=== PATIENT | female | born 1970 | race Caucasian/White ===

== ENCOUNTER 2019-11-17 09:18 | Emergency (ER) | payer OTHER, MEDICARE ==
--- NOTE | 2019-11-17 09:47 | EDM.PDOC ---
ED HPI GENERAL MEDICAL PROBLEM - General Chief Complaint: Lower Extremity Injury/Pain Stated Complaint: HIP PAIN Time Seen by Provider: 11/17/19 09:23 - History of Present Illness INITIAL COMMENTS - FREE TEXT/NARRATIVE: History of present illness: Patient presents with left hip pain after stepping in a gopher hole 2 days ago . Denies chronic back pain and has had surgery and she is concerned that when she stepped in a hole she might have injured her back she denies any back pain she is not had any difficulty urinating no numbness in her groin movement makes it worse she states she is not able to bear weight on the left hip due to pain and has been using crutches to get around as any other injuries did not fall the pain is mostly in her left groin radiating around to the posterior aspect of the left pelvis. [] Review of systems: As per history of present illness and below otherwise all systems reviewed and negative. Past medical history: As per history of present illness and as reviewed below otherwise noncontributory. Surgical history: As per history of present illness and as reviewed below otherwise noncontributory. Social history: No reported history of drug or alcohol abuse. Family history: As per history of present illness and as reviewed below otherwise noncontributory. Physical exam: HEENT: Atraumatic, normocephalic, pupils reactive, negative for conjunctival pallor or scleral icterus, mucous membranes moist, throat clear, neck supple, nontender, trachea midline. Lungs: Clear to auscultation, breath sounds equal bilaterally, chest nontender. Heart: S1S2, regular, negative for clicks, rubs, or JVD. Abdomen: Soft, nondistended, nontender. Negative for masses or hepatosplenomegaly. Negative for costovertebral tenderness. Pelvis: Stable nontender. Genitourinary: Deferred. Rectal: Deferred. Extremities: Atraumatic, negative for cords or calf pain. Neurovascular unremarkable. Pain with internal and external rotation of the femur there is pain over the groin she has good distal pulse motor and sensation Neuro: Awake, alert, oriented. Cranial nerves II through XII unremarkable. Cerebellum unremarkable. Motor and sensory unremarkable throughout. Exam nonfocal. Saddle anesthesia great toe strength 5 out of 5 Diagnostics: [] Therapeutics: [] Impression: [] Plan: Patient is concerned she injured her back and wants x-rays of the back I will obtain a lumbar spine and a pelvis and left hip to rule out hip fracture she is declining medication for pain at this time she will then be reassessed after films are obtained [] Definitive disposition and diagnosis as appropriate pending reevaluation and review of above. Left Hip Pain Score (Numeric/FACES): 8 - Related Data Allergies Allergy/AdvReac Type Severity Reaction Status Date / Time doxycycline Allergy Seizure Verified 11/17/19 09:31 erythromycin lactobionate Allergy Nausea and Verified 11/17/19 09:31 [From Erythrocin] Vomiting Home Meds: Home Meds raNITIdine HCL [Zantac 75] 75 mg PO ASDIRECTED PRN MDD 75 10/22/18 [History] Past Medical History HEENT History: Reports: None Cardiovascular History: Reports: Hypertension Respiratory History: Reports: Sleep Apnea, Other (See Below) Other Respiratory History: C-pap at home for sleep Gastrointestinal History: Reports: GERD Genitourinary History: 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 Calculus 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: Musculoskeletal History: Reports: Back Pain, Chronic Neurological History: Reports: Seizure Psychiatric History: Reports: None Endocrine/Metabolic History: Reports: None Hematologic History: Reports: None Immunologic History: Reports: None Oncologic (Cancer) History: Reports: None Dermatologic History: Reports: Other (See Below) Other Dermatologic History: rosacea - Infectious Disease History Infectious Disease History: Reports: Chicken Pox, Measles - Past Surgical History Head Surgeries/Procedures: Reports: None HEENT Surgical History: Reports: Tonsillectomy Cardiovascular Surgical History: Reports: None GI Surgical History: Reports: Appendectomy, Cholecystectomy Female Surgical History: Reports: Hysterectomy Endocrine Surgical History: Reports: None Neurological Surgical History: Reports: Spinal Fusion Musculoskeletal Surgical History: Reports: Other (See Below) Other Musculoskeletal Surgeries/Procedures:: back pain and back surgery x3 Last January 2017 Dermatological Surgical History: Reports: None Social & Family History - Family History Family Medical History: Noncontributory Cardiac: Reports: [place] - Tobacco Use Smoking Status *Q: Never Smoker - Caffeine Use Caffeine Use: Reports: Coffee Caffeine Use Comment: 2 cups coffee per day - Recreational Drug Use Recreational Drug Use: No Review of Systems - Review of Systems Review Of Systems: See Below ED EXAM, GENERAL - Physical Exam Exam: See Below Course - Vital Signs Last Recorded V/S: Last Vital Signs Temp 36.4 C 11/17/19 09:32 Pulse 102 H 11/17/19 09:32 Resp 16 11/17/19 09:32 BP 150/103 H 11/17/19 09:32 Pulse Ox 95 11/17/19 09:32 - Orders/Labs/Meds Orders: Active Orders 24 hr Category Date Time Status Hip Min 1V w Pelvis Lt [CR] Stat Exams 11/17/19 09:43 Ordered Lumbar Spine 2 or 3V [CR] Stat Exams 11/17/19 09:44 Ordered - Radiology Interpretation Free Text/Narrative:: A 4 view pelvis and left hip was read and interpreted by me no acute fractures or dislocations there are postoperative lumbar spine fusion changes present. A 3 view lumbar spine was read interpreted by me postop lumbar spine fusion at the level of L5-S1 is present appears stable no acute fractures or subluxations are appreciated read and interpreted by me. Departure - Departure Time of Disposition: 10:15 Disposition: Home, Self-Care 01 Condition: Good Clinical Impression: Sprain of hip - Discharge Information *PRESCRIPTION DRUG MONITORING PROGRAM REVIEWED*: Not Applicable *COPY OF PRESCRIPTION DRUG MONITORING REPORT IN PATIENT BLAIR: Not Applicable Instructions: Hip Pain Referrals: [facility] [Primary Care Provider] - Forms: ED Department Discharge Additional Instructions: The following information is given to patients seen in the emergency department who are being discharged to home. This information is to outline your options for follow-up care. We provide all patients seen in our emergency department with a follow-up referral. The need for follow-up, as well as the timing and circumstances, are variable depending upon the specifics of your emergency department visit. If you don't have a primary care physician on staff, we will provide you with a referral. We always advise you to contact your personal physician following an emergency department visit to inform them of the circumstance of the visit and for follow-up with them and/or the need for any referrals to a consulting specialist. The emergency department will also refer you to a specialist when appropriate. This referral assures that you have the opportunity for follow-up care with a specialist. All of these measure are taken in an effort to provide you with optimal care, which includes your follow-up. Under all circumstances we always encourage you to contact your private physician who remains a resource for coordinating your care. When calling for follow-up care, please make the office aware that this follow-up is from your recent emergency room visit. If for any reason you are refused follow-up, please contact the [facility] Emergency Department at and asked to speak to the emergency department charge nurse. Sepsis Event Note - Evaluation Sepsis Screening Result: No Definite Risk - Focused Exam Vital Signs: Vital Signs Temp Pulse Resp BP Pulse Ox 11/17/19 09:32 36.4 C 102 H 16 150/103 H 95 Date Exam was Performed: 11/17/19 Time Exam was Performed: 10:14 - My Orders Last 24 Hours: My Active Orders 11/17/19 09:43 Hip Min 1V w Pelvis Lt [CR] Stat 11/17/19 09:44 Lumbar Spine 2 or 3V [CR] Stat - Assessment/Plan Last 24 Hours: My Active Orders 11/17/19 09:43 Hip Min 1V w Pelvis Lt [CR] Stat 11/17/19 09:44 Lumbar Spine 2 or 3V [CR] Stat
[2019-11-17 10:37] VITALS: BP 153/101; PULSE 84
--- NOTE | 2019-11-17 10:38 | CR ---
Lumbar spine: AP, lateral and coned-down lateral views centered to the lumbosacral junction were obtained. Comparison: No previous lumbar spine imaging. Previous surgery at L5-S1 with transpedicle screws and intervertebral disc fixation device. Other disc spaces are maintained. Vertebral body heights are maintained. Minimal scattered endplate osteophytes are seen. Surgical clips are seen within the upper right abdomen from prior cholecystectomy. Pedicles are intact. Visualized transverse and spinous processes are intact. No subluxation or fracture is appreciated. Impression: 1. Previous surgery. 2. Minimal scattered endplate osteophytes. 3. Nothing acute is appreciated. Diagnostic code #2 This report was dictated in MDT
--- NOTE | 2019-11-17 10:38 | CR ---
Pelvis and left hip: AP view of the pelvis was obtained as well as AP and frog-leg lateral views left hip. Comparison: No prior pelvis or left hip study is available. Previous lumbar spine surgery is noted. Joint spaces within both hips are preserved. No acute fracture or other bony abnormality is identified. Impression: 1. Previous lumbar spine surgery. 2. Nothing acute is identified on AP pelvis or on 2 view left hip exam. Diagnostic code #2 This report was dictated in MDT
== END 2019-11-17 10:31 | disposition home or self-care (01) ==
LOC: MW.ED 09:18
DX: S73.102A Unspecified sprain of left hip, initial encounter (principal); I10 Essential (primary) hypertension; Z88.1 Allergy status to other antibiotic agents; X50.9XXA Other and unspecified overexertion or strenuous movements or postures, initial encounter
CPT/HCPCS: 72100; 72100-26; 73501-26-LT; 73501-LT; 99283; 99283-25

== ENCOUNTER 2020-11-20 22:30 | Emergency (ER) | payer OTHER ==
[2020-11-20] MEDS ORDERED: Sodium Chloride 0.9% 10 ML Syringe FLUSH PRN (22:54)
[2020-11-20] MEDS ORDERED: Ondansetron 4 MG/2 ML SDV IVPUSH ONE (22:54)
[2020-11-20] MEDS ORDERED: Sodium Chloride 0.9% 2.5 ML Syringe FLUSH PRN (22:54)
[2020-11-20] MEDS ORDERED: Lactated Ringers 1,000 ML IV ONE (22:55)
--- NOTE | 2020-11-20 22:57 | EDM.PDOC ---
ED HPI GENERAL MEDICAL PROBLEM - General Chief Complaint: Gastrointestinal Problem Stated Complaint: DIZZINESS, SLIP AND FALL Time Seen by Provider: 11/20/20 22:35 - History of Present Illness INITIAL COMMENTS - FREE TEXT/NARRATIVE: History of present illness: [] This patient has chronic back pain for a year and a half. A year ago she started a medical marijuana both smoked and edible. In July of this year she slowed down and smoked an edible and began to use it in her cooking. Since then she has had nausea and vomiting frequently. She is vomiting so much the last few days and she thinks she is dehydrated. She feels weak and dizzy. Patient has abdominal pain as well. The patient says her back pain is not as well controlled either since she started cooking with the THC instead of taking the edibles and smoke. Review of systems: As per history of present illness and below otherwise all systems reviewed and negative. Past medical history: As per history of present illness and as reviewed below otherwise noncontributory. Surgical history: As per history of present illness and as reviewed below otherwise noncontributory. Social history: No reported history of drug or alcohol abuse. Family history: As per history of present illness and as reviewed below otherwise noncontributory. Physical exam: Constitutional - well developed, well-nourished and in no acute distress HEENT - normocephalic, no evidence of trauma - external nose and mouth normal - no mass in neck and no JVD - mucosae moist EYES - full EOM, PERRL, no icterus - no evidence of inflammation, injection, or drainage Respiratory - no respiratory distress, equal bilateral expansion, lungs clear to auscultation and no abnormal lung sounds Cardiovascular - Regular Rhythm with S1 and S2 appreciated and no murmur, gallop or rub. GI - abdomen soft without distension or organomegaly - normal bowel sounds - no guard or rebound Musculoskeletal no gross deformity of long bones or joints - no tenderness, swelling or edema Neurologic - Alert and oriented times four - CN II-XII grossly intact - motor sensory and coordination symmetrically normal Psychiatric - appropriate mood and affect with normal thought content Hematologic - No petechiae or purpura - mucosa appropriate color and sclera not pale - normal nail bed color and refill Integument - no rash or evidence of trauma - normal turgor Diagnostics: [] Therapeutics: [] Impression: [] Plan: [] Definitive disposition and diagnosis as appropriate pending reevaluation and review of above. epigastric Pain Score (Numeric/FACES): 8 - Related Data Allergies Allergy/AdvReac Type Severity Reaction Status Date / Time doxycycline Allergy Seizure Verified 11/20/20 22:49 erythromycin lactobionate Allergy Nausea and Verified 11/20/20 22:49 [From Erythrocin] Vomiting Home Meds: Home Meds Medical Marijuana 11/20/20 [History] Ondansetron [Zofran ODT] 4 mg PO Q6H PRN #10 tab.dis 11/21/20 [Rx] Past Medical History HEENT History: Reports: None Cardiovascular History: Reports: Hypertension Respiratory History: Reports: Sleep Apnea, Other (See Below) Other Respiratory History: C-pap at home for sleep Gastrointestinal History: Reports: GERD Genitourinary History: 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 Calculus 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: Musculoskeletal History: Reports: Back Pain, Chronic Neurological History: Reports: Seizure Psychiatric History: Reports: None Endocrine/Metabolic History: Reports: None Hematologic History: Reports: None Immunologic History: Reports: None Oncologic (Cancer) History: Reports: None Dermatologic History: Reports: Other (See Below) Other Dermatologic History: rosacea - Infectious Disease History Infectious Disease History: Reports: Chicken Pox, Measles - Past Surgical History Head Surgeries/Procedures: Reports: None HEENT Surgical History: Reports: Tonsillectomy Cardiovascular Surgical History: Reports: None GI Surgical History: Reports: Appendectomy, Cholecystectomy Female Surgical History: Reports: Hysterectomy Endocrine Surgical History: Reports: None Neurological Surgical History: Reports: Spinal Fusion Musculoskeletal Surgical History: Reports: Other (See Below) Other Musculoskeletal Surgeries/Procedures:: back pain and back surgery x3 Last January 2017 Dermatological Surgical History: Reports: None Social & Family History - Family History Family Medical History: No Pertinent Family History Cardiac: Reports: [place] - Caffeine Use Caffeine Use: Reports: Coffee Caffeine Use Comment: 2 cups coffee per day ED ROS GENERAL - Review of Systems Review Of Systems: Comprehensive ROS is negative, except as noted in HPI. ED EXAM, GENERAL - Physical Exam Exam: See Below Free Text/Narrative:: My physical exam is in the HPI #1 Interpretation EKG Interpretation Comments: An EKG done by nursing protocol at 2244 hrs. shows a sinus rhythm with a heart rate of 67 and a MI interval 141. The QT duration is 432 and the axis is 42. The QRS ST and T are normal. Impression normal Course - Vital Signs Text/Narrative:: 00 20 hours patient feels better. Stomach still hurts. Plan Protonix. Discharge. Last Recorded V/S: Last Vital Signs Temp 36.9 C 11/20/20 22:35 Pulse 84 11/20/20 22:35 Resp 18 11/20/20 22:35 BP 155/87 H 11/20/20 22:35 Pulse Ox 97 11/20/20 22:35 - Orders/Labs/Meds Orders: Active Orders 24 hr Category Date Time Status Sodium Chloride 0.9% [Saline Flush] Med 11/20/20 22:54 Active 10 ml FLUSH ASDIRECTED PRN Sodium Chloride 0.9% [Saline Flush] Med 11/20/20 22:54 Active 2.5 ml FLUSH ASDIRECTED PRN Saline Lock Insert [OM.PC] Stat Oth 11/20/20 22:54 Ordered Medication Orders Sodium Chloride (Sodium Chloride 0.9% 10 Ml Syringe) 10 ml FLUSH ASDIRECTED PRN PRN Reason: Keep Vein Open Last Admin: 11/20/20 23:34 Dose: 10 ml Documented by: JUAN Sodium Chloride (Sodium Chloride 0.9% 2.5 Ml Syringe) 2.5 ml FLUSH ASDIRECTED PRN PRN Reason: Keep Vein Open Last Admin: 11/20/20 23:34 Dose: 2.5 ml Documented by: JUAN Labs: Laboratory Tests 11/20/20 11/20/20 11/20/20 Range/Units 23:32 23:32 23:32 WBC 6.96 (4.0-11.0) K/uL RBC 4.64 (4.30-5.90) M/uL Hgb 14.5 (12.0-16.0) g/dL Hct 41.9 (36.0-46.0) % MCV 90.3 (80.0-98.0) fL MCH 31.3 (27.0-32.0) pg MCHC 34.6 (31.0-37.0) g/dL RDW Std Deviation 45.4 (28.0-62.0) fl RDW Coeff of Santi 14 (11.0-15.0) % Plt Count 298 (150-400) K/uL MPV 9.70 (7.40-12.00) fL Neut % (Auto) 56.5 (48.0-80.0) % Lymph % (Auto) 32.8 (16.0-40.0) % Mcdonough % (Auto) 9.5 (0.0-15.0) % Eos % (Auto) 0.9 (0.0-7.0) % Baso % (Auto) 0.3 (0.0-1.5) % Neut # (Auto) 3.9 (1.4-5.7) K/uL Lymph # (Auto) 2.3 (0.6-2.4) K/uL Mcdonough # (Auto) 0.7 (0.0-0.8) K/uL Eos # (Auto) 0.1 (0.0-0.7) K/uL Baso # (Auto) 0.0 (0.0-0.1) K/uL Nucleated RBC % 0.0 /100WBC Nucleated RBCs # 0 K/uL Sodium 141 (136-145) mmol/L Potassium 3.2 L (3.5-5.1) mmol/L Chloride 103 (98-107) mmol/L Carbon Dioxide 24.3 (21.0-32.0) mmol/L BUN 7 (7.0-18.0) mg/dL Creatinine 0.8 (0.6-1.0) mg/dL Est Cr Clr Drug Dosing 61.10 mL/min Estimated GFR (MDRD) > 60.0 ml/min Glucose 97 (74-106) mg/dL Calcium 8.9 (8.5-10.1) mg/dL Total Bilirubin 0.4 (0.2-1.0) mg/dL AST 28 (15-37) IU/L ALT 60 (14-63) IU/L Alkaline Phosphatase 64 (46-116) U/L Total Protein 7.7 (6.4-8.2) g/dL Albumin 4.0 (3.4-5.0) g/dL Globulin 3.7 (2.6-4.0) g/dL Albumin/Globulin Ratio 1.1 (0.9-1.6) Lipase 80 (73-393) U/L HCG, Qual NEGATIVE (NEG) Meds: Medications Generic Name Dose Route Start Last Admin Trade Name Freq PRN Reason Stop Dose Admin Sodium Chloride 10 ml 11/20/20 22:54 11/20/20 23:34 Sodium Chloride 0.9% 10 Ml Syringe FLUSH 10 ml ASDIRECTED PRN Administration Keep Vein Open Sodium Chloride 2.5 ml 11/20/20 22:54 11/20/20 23:34 Sodium Chloride 0.9% 2.5 Ml Syringe FLUSH 2.5 ml ASDIRECTED PRN Administration Keep Vein Open Discontinued Medications Generic Name Dose Route Start Last Admin Trade Name Freq PRN Reason Stop Dose Admin Lactated Ringer's 1,000 mls @ 1,000 mls/hr 11/20/20 22:55 11/20/20 23:25 Ringers, Lactated IV 11/20/20 23:54 1,000 mls/hr .BOLUS ONE Administration Pantoprazole Sodium 40 mg/ 10 mls @ 300 mls/hr 11/21/20 00:19 Sodium Chloride IV 11/21/20 00:20 NOW ONE Ondansetron HCl 4 mg 11/20/20 22:54 11/20/20 23:25 Ondansetron 4 Mg/2 Ml Sdv IVPUSH 11/20/20 22:55 4 mg ONETIME ONE Administration Departure - Departure Time of Disposition: 00:25 Disposition: Home, Self-Care 01 Condition: Good Clinical Impression: Gastritis - Discharge Information Prescriptions: Ondansetron [Zofran ODT] 4 mg PO Q6H PRN #10 tab.dis PRN Reason: Nausea/Vomiting Instructions: Gastritis, Adult, [id number] Referrals: PCP,None [Primary Care Provider] - Forms: ED Department Discharge Additional Instructions: Go back to the plan of care that you were under before you got into trouble in July. Take Pepcid and/or Prilosec and/or both. [facility] - [facility] [address] [place] [id number] [facility] [address] [place] [id number] The following information is given to patients seen in the emergency department who are being discharged to home. This information is to outline your options for follow-up care. We provide all patients seen in our emergency department with a follow-up referral. The need for follow-up, as well as the timing and circumstances, are variable depending upon the specifics of your emergency department visit. If you don't have a primary care physician on staff, we will provide you with a referral. We always advise you to contact your personal physician following an emergency department visit to inform them of the circumstance of the visit and for follow-up with them and/or the need for any referrals to a consulting specialist. The emergency department will also refer you to a specialist when appropriate. This referral assures that you have the opportunity for follow-up care with a specialist. All of these measure are taken in an effort to provide you with optimal care, which includes your follow-up. Under all circumstances we always encourage you to contact your private physician who remains a resource for coordinating your care. When calling for follow-up care, please make the office aware that this follow-up is from your recent emergency room visit. If for any reason you are refused follow-up, please contact the [facility] Emergency Department at and asked to speak to the emergency department charge nurse. Sepsis Event Note (ED) - Evaluation Sepsis Screening Result: No Definite Risk - Focused Exam Vital Signs: Vital Signs Temp Pulse Resp BP Pulse Ox 11/20/20 22:35 36.9 C 84 18 155/87 H 97 - My Orders Last 24 Hours: My Active Orders 11/20/20 22:54 Sodium Chloride 0.9% [Saline Flush] 10 ml FLUSH ASDIRECTED PRN Sodium Chloride 0.9% [Saline Flush] 2.5 ml FLUSH ASDIRECTED PRN Saline Lock Insert [OM.PC] Stat - Assessment/Plan Last 24 Hours: My Active Orders 11/20/20 22:54 Sodium Chloride 0.9% [Saline Flush] 10 ml FLUSH ASDIRECTED PRN Sodium Chloride 0.9% [Saline Flush] 2.5 ml FLUSH ASDIRECTED PRN Saline Lock Insert [OM.PC] Stat
[2020-11-21 00:05] LABS: BLOOD UREA NITROGEN,BUN 7 mg/dL (7.0-18.0); CARBON DIOXIDE,CO2 24.3 mmol/L (21.0-32.0); CHLORIDE,CL 103 mmol/L (98-107); GLUCOSE RANDOM 97 mg/dL (74-106); POTASSIUM,K 3.2 mmol/L (3.5-5.1); SODIUM,NA 141 mmol/L (136-145)
[2020-11-21 00:06] LABS: LIPASE 80 U/L (73-393)
[2020-11-21] MEDS ORDERED: Pantoprazole 40 MG in Sodium Chloride 0.9% 10 ML IV ONE (00:19)
[2020-11-21 00:38] VITALS: BP 135/71; PULSE 82
== END 2020-11-21 00:52 | disposition home or self-care (01) ==
LOC: MW.ED 22:30
DX: K29.70 Gastritis, unspecified, without bleeding (principal); R42 Dizziness and giddiness; I10 Essential (primary) hypertension; Z88.1 Allergy status to other antibiotic agents
CPT/HCPCS: 36415; 80053; 83690; 84703; 85025; 93005; 96374; 96375; 99284; C9113; J2405; J7120

== ENCOUNTER 2020-12-09 09:42 | Emergency (ER) | payer OTHER ==
--- NOTE | 2020-12-09 10:26 | EDM.PDOC ---
ED HPI GENERAL MEDICAL PROBLEM - General Chief Complaint: General Stated Complaint: SINUS INFECTION Time Seen by Provider: 12/09/20 10:05 Source of Information: Reports: Patient History Limitations: Reports: No Limitations - History of Present Illness INITIAL COMMENTS - FREE TEXT/NARRATIVE: HISTORY AND PHYSICAL: History of present illness: Patient is a 50-year-old female who presents to the emergency room with complaints of sinus pressure, pain to the maxillofacial area, runny/stuffy nose since Friday. [facility], the hotline recommended she come to the emergency room for antibiotics. She was concerned she has a sinus infection and wanted treatment before she took a flight on Friday. Patient denies any fever, chills, headache, change in vision, syncope or near syncope. Denies any chest pain, back pain, shortness of breath or cough. Denies any abdominal pain, nausea, vomiting, diarrhea, constipation or dysuria. Has not noted any blood in urine or stool. Patient has been eating and drinking appropriately. Review of systems: As per history of present illness and below otherwise all systems reviewed and negative. Past medical history: As per history of present illness and as reviewed below otherwise noncontributory. Surgical history: As per history of present illness and as reviewed below otherwise non contributory. Social history: See social history for further information Family history: As per history of present illness and as reviewed below otherwise noncontributory. Physical exam: General: Well developed and well nourished 50 year old female. Alert and orientated x 3. Nontoxic in appearance and in no acute distress. Vital signs are stable and have been reviewed by me. Nursing notes were reviewed. HEENT: Atraumatic, normocephalic, pupils equal and reactive bilaterally, negative for conjunctival pallor or scleral icterus, mucous membranes moist, bilateral maxillofacial sinus tenderness with palpation, stuffy nose, TMs normal bilaterally, throat clear, neck supple, nontender, trachea midline. No drooling or trismus noted. No meningeal signs. No hot potato voice noted. Lungs: Clear to auscultation bilaterally. No wheezes, rales, or rhonchi. Normal work of breathing, no accessory muscles used. Heart: S1S2, regular rate and rhythm without overt murmur, gallops, or rubs. No JVD. No peripheral edema Abdomen: Soft, nondistended, nontender. Skin: Intact, warm, dry. No lesions or rashes noted. Hematologic: No petechiae or purpra. Mucosa appropriate color and normal nail bed color and refill. Extremities: Atraumatic, moves all extremities per self without difficulty or deficits, negative for cords or calf pain. Neurovascular unremarkable. Neuro: Awake, alert, oriented. Cranial nerves II through XII unremarkable. Cerebellum unremarkable. Motor and sensory unremarkable throughout. Exam nonfocal. Psychiatric: Mood and affect are appropriate. Normal thought process. Answering questions appropriately. Notes: *This patient was seen and evaluated during the 2019 SARS-CoV-2 novel coronavirus pandemic period. Community viral transmission is ongoing at time of this encounter and the emergency department is operating under pandemic response procedures. Patient is a 50-year-old female who presents to the emergency room with concern she has a sinus infection. She states she is flying on Friday and would like to initiate treatment before then. She has been using [id number] sinus and cold medication without much relief. She has no concerns for COVID-19. Her physical exam is unremarkable with the exception of EENT findings. I have talked with the patient about today's findings, in addition to providing specific details for plan of care. Reassessment at the time of disposition demonstrates that the patient is in no acute distress. The patient is stable for discharge, counseling was provided and we discussed in great detail signs and symptoms that would prompt them to return to the Emergency Department. Medication, follow up and supportive care measures were reviewed and discussed. Voices understanding and is agreeable to plan of care. Denies any further questions or concerns at this time. Diagnostics: None Therapeutics: None Prescription: Augmentin Impression: Sinusitis Plan: 1. You were evaluated today on an emergent basis. Please take an [id number] decongestant to help alleviate symptoms. 2. You can alternate Tylenol and ibuprofen as needed for pain and fever management. 3. We encourage you to follow up with your primary care provider and/or recommended specialist in the next few days for re-evaluation and further care/management. 4. If your symptoms should worsen, new symptoms develop or any of the signs and symptoms we discussed should arise please return to the emergency room or call 911 (if needed). Definitive disposition and diagnosis as appropriate pending reevaluation and review of above. - Related Data Allergies Allergy/AdvReac Type Severity Reaction Status Date / Time doxycycline Allergy Seizure Verified 12/09/20 10:33 erythromycin lactobionate Allergy Nausea and Verified 12/09/20 10:33 [From Erythrocin] Vomiting Home Meds: Home Meds Medical Marijuana 11/20/20 [History] Ondansetron [Zofran ODT] 4 mg PO Q6H PRN #10 tab.dis 11/21/20 [Rx] Amoxicillin/Clavulanate K [Augmentin 875-125 MG] 1 tab PO BID 10 Days #20 tablet 12/09/20 [Rx] Past Medical History HEENT History: Reports: None Cardiovascular History: Reports: Hypertension Respiratory History: Reports: Sleep Apnea, Other (See Below) Other Respiratory History: C-pap at home for sleep Gastrointestinal History: Reports: GERD Genitourinary History: 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 Calculus 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: Musculoskeletal History: Reports: Back Pain, Chronic Neurological History: Reports: Seizure Psychiatric History: Reports: None Endocrine/Metabolic History: Reports: None Hematologic History: Reports: None Immunologic History: Reports: None Oncologic (Cancer) History: Reports: None Dermatologic History: Reports: Other (See Below) Other Dermatologic History: rosacea - Infectious Disease History Infectious Disease History: Reports: Chicken Pox, Measles - Past Surgical History Head Surgeries/Procedures: Reports: None HEENT Surgical History: Reports: Tonsillectomy Cardiovascular Surgical History: Reports: None GI Surgical History: Reports: Appendectomy, Cholecystectomy Female Surgical History: Reports: Hysterectomy Endocrine Surgical History: Reports: None Neurological Surgical History: Reports: Spinal Fusion Musculoskeletal Surgical History: Reports: Other (See Below) Other Musculoskeletal Surgeries/Procedures:: back pain and back surgery x3 Last January 2017 Dermatological Surgical History: Reports: None Social & Family History - Family History Family Medical History: No Pertinent Family History Cardiac: Reports: AL - Caffeine Use Caffeine Use: Reports: Coffee Caffeine Use Comment: 2 cups coffee per day ED ROS GENERAL - Review of Systems Review Of Systems: Comprehensive ROS is negative, except as noted in HPI. ED EXAM, GENERAL - Physical Exam Exam: See Below (See dictation) Departure - Departure Time of Disposition: 10:32 Disposition: Home, Self-Care 01 Clinical Impression: Sinusitis Qualifiers: Sinusitis location: maxillary Chronicity: acute Recurrence: non-recurrent Qualified Code(s): J01.00 - Acute maxillary sinusitis, unspecified - Discharge Information Prescriptions: Amoxicillin/Clavulanate K [Augmentin 875-125 MG] 1 tab PO BID 10 Days #20 tablet Instructions: Sinusitis, Adult, [id number] Referrals: Ab Becker SURVEY COORDINATOR [Primary Care Provider] - Forms: ED Department Discharge Additional Instructions: The following information is given to patients seen in the emergency department who are being discharged to home. This information is to outline your options for follow-up care. We provide all patients seen in our emergency department with a follow-up referral. The need for follow-up, as well as the timing and circumstances, are variable depending upon the specifics of your emergency department visit. If you don't have a primary care physician on staff, we will provide you with a referral. We always advise you to contact your personal physician following an emergency department visit to inform them of the circumstance of the visit and for follow-up with them and/or the need for any referrals to a consulting specialist. The emergency department will also refer you to a specialist when appropriate. This referral assures that you have the opportunity for follow-up care with a specialist. All of these measure are taken in an effort to provide you with optimal care, which includes your follow-up. Under all circumstances we always encourage you to contact your private physician who remains a resource for coordinating your care. When calling for follow-up care, please make the office aware that this follow-up is from your recent emergency room visit. If for any reason you are refused follow-up, please contact the [facility] Emergency Department at and asked to speak to the emergency department charge nurse. [facility] [address] [place] [id number] [address] Thank you for choosing the [facility] emergency department in [facility] for your medical needs today. It was a pleasure caring for you. Today you were seen in the emergency department for sinusitis. 1. You were evaluated today on an emergent basis. Please take an [id number] decongestant to help alleviate symptoms. 2. You can alternate Tylenol and ibuprofen as needed for pain and fever management. 3. We encourage you to follow up with your primary care provider and/or recommended specialist in the next few days for re-evaluation and further care/management. 4. If your symptoms should worsen, new symptoms develop or any of the signs and symptoms we discussed should arise please return to the emergency room or call 911 (if needed).
[2020-12-09 10:55] VITALS: BP 128/87; PULSE 80
== END 2020-12-09 10:53 | disposition home or self-care (01) ==
LOC: MW.ED 09:42
DX: J01.00 Acute maxillary sinusitis, unspecified (principal); I10 Essential (primary) hypertension; Z88.1 Allergy status to other antibiotic agents
CPT/HCPCS: 99283

== ENCOUNTER 2021-06-25 00:37 | Observation (INO) | payer OTHER ==
[2021-06-25] MEDS ORDERED: Sodium Chloride 0.9% 2.5 ML Syringe FLUSH PRN (00:41)
[2021-06-25] MEDS ORDERED: Sodium Chloride 0.9% 10 ML Syringe FLUSH PRN (00:41)
--- NOTE | 2021-06-25 00:44 | EDM.PDOC ---
ED HPI GENERAL MEDICAL PROBLEM - General Chief Complaint: Chest Pain Stated Complaint: CHEST PAIN AND SHORTNESS OF BREATH Time Seen by Provider: 06/25/21 00:40 Source of Information: Reports: Patient History Limitations: Reports: No Limitations - History of Present Illness INITIAL COMMENTS - FREE TEXT/NARRATIVE: 51-year-old female with history of lupus and anxiety presents with chest pain. She had left-sided chest pain yesterday that lasted for an hour and then resolved. This evening around 11 PM while she was lying in bed she started having recurring chest pain and her left chest that radiates to her left shoulder, described as waxing and waning cramping sensation rated 7/10. Currently rated 3/10. She admits to shortness of breath and nausea. She denies sweats, palpitations, back pain, vomiting, cough, fever, chills. She has never had a stress test. ROS: A 10-point review of systems, other than pertinent positives and negatives as stated per HPI, is otherwise negative Past medical history: No additional pertinent history Past Surgical history: No additional pertinent history Social history: No additional pertinent history Family history: No additional pertinent history PHYSICAL EXAM General: AOx4, GCS = 15, No distress HEENT: dry mucous membrane Neck: supple, no meningismus, no Kernig or Brudzinski Cardiac: S1S2 RRR Respiratory: CTAB, no crackles or rales, no wheezing Abdomen: Soft, epigastric tenderness, no right upper quadrant tenderness. Negative Hollis sign. No rebound or guarding, nondistended, no pulsatile mass. Back: nontender Musculoskeletal: NVI distally, no deformity Neuro: No focal deficits, CN 2 - 12 WNL. 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 History: 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: Musculoskeletal History: Reports: Back Pain, Chronic Neurological History: Reports: Seizure Psychiatric History: Reports: None Endocrine/Metabolic History: Reports: None Hematologic History: Reports: None Immunologic History: Reports: None Oncologic (Cancer) History: Reports: None Dermatologic History: Reports: Other (See Below) Other Dermatologic History: rosacea - Infectious Disease History Infectious Disease History: Reports: Chicken Pox, Measles - Past Surgical History Head Surgeries/Procedures: Reports: None HEENT Surgical History: Reports: Tonsillectomy Cardiovascular Surgical History: Reports: None Respiratory Surgical History: Reports: None GI Surgical History: Reports: Appendectomy, Cholecystectomy Female Surgical History: Reports: Hysterectomy Endocrine Surgical History: Reports: None Neurological Surgical History: Reports: Spinal Fusion Musculoskeletal Surgical History: Reports: Other (See Below) Other Musculoskeletal Surgeries/Procedures:: back pain and back surgery x3 Last January 2017 Dermatological Surgical History: Reports: None Social & Family History - Family History Family Medical History: No Pertinent Family History Cardiac: Reports: ID - Caffeine Use Caffeine Use: Reports: None Caffeine Use Comment: 2 cups coffee per day ED ROS GENERAL - Review of Systems Review Of Systems: See Below ED EXAM, GENERAL - Physical Exam Exam: See Below (see dictation) #1 Interpretation EKG Interpretation Comments: Heart rate = 93 bpm, normal sinus rhythm, normal QRS interval, no STEMI. EKG and rhythm strip interpreted by me at 1237 Course - Vital Signs Last Recorded V/S: Last Vital Signs Temp 97.4 F 06/25/21 00:43 Pulse 92 06/25/21 02:15 Resp 17 06/25/21 02:15 BP 102/65 06/25/21 02:15 Pulse Ox 97 06/25/21 02:15 - Orders/Labs/Meds Orders: Active Orders 24 hr Category Date Time Status Cardiac Monitoring [RC] . DIRECTED Care 06/25/21 00:41 Active B-TYPE NATRIURETIC PEPTIDE,BNP [CHEM] Stat Lab 06/25/21 00:40 Received CORONAVIRUS COVID-19 KATARZYNA [MOLEC] Stat Lab 06/25/21 03:00 Ordered Nitroglycerin [Nitrostat] Med 06/25/21 01:38 Active 0.4 mg SL Q5M PRN Sodium Chloride 0.9% [Saline Flush] Med 06/25/21 00:41 Active 10 ml FLUSH ASDIRECTED PRN Sodium Chloride 0.9% [Saline Flush] Med 06/25/21 00:41 Active 2.5 ml FLUSH ASDIRECTED PRN Saline Lock Insert [OM.PC] Stat Oth 06/25/21 00:42 Ordered Medication Orders Nitroglycerin (Nitroglycerin 0.4 Mg Tab.Sl) 0.4 mg SL Q5M PRN PRN Reason: Chest Pain Last Admin: 06/25/21 02:10 Dose: 0.4 mg Documented by: SHANNAN Sodium Chloride (Sodium Chloride 0.9% 10 Ml Syringe) 10 ml FLUSH ASDIRECTED PRN PRN Reason: Keep Vein Open Last Admin: 06/25/21 00:50 Dose: 10 ml Documented by: LANCE Sodium Chloride (Sodium Chloride 0.9% 2.5 Ml Syringe) 2.5 ml FLUSH ASDIRECTED PRN PRN Reason: Keep Vein Open Last Admin: 06/25/21 00:50 Dose: 2.5 ml Documented by: LANCE Labs: Laboratory Tests 06/25/21 06/25/21 06/25/21 Range/Units 00:40 00:40 00:40 WBC 10.84 (4.0-11.0) K/uL RBC 4.90 (4.30-5.90) M/uL Hgb 15.0 (12.0-16.0) g/dL Hct 43.8 (36.0-46.0) % MCV 89.4 (80.0-98.0) fL MCH 30.6 (27.0-32.0) pg MCHC 34.2 (31.0-37.0) g/dL RDW Std Deviation 45.1 (28.0-62.0) fl RDW Coeff of Santi 14 (11.0-15.0) % Plt Count 340 (150-400) K/uL MPV 9.10 (7.40-12.00) fL Neut % (Auto) 45.1 L (48.0-80.0) % Lymph % (Auto) 44.1 H (16.0-40.0) % [place] % (Auto) 8.7 (0.0-15.0) % Eos % (Auto) 1.8 (0.0-7.0) % Baso % (Auto) 0.3 (0.0-1.5) % Neut # (Auto) 4.9 (1.4-5.7) K/uL Lymph # (Auto) 4.8 H (0.6-2.4) K/uL [place] # (Auto) 0.9 H (0.0-0.8) K/uL Eos # (Auto) 0.2 (0.0-0.7) K/uL Baso # (Auto) 0.0 (0.0-0.1) K/uL D-Dimer, Quantitative (0.0-0.50) mg/L FEU Sodium 140 (136-145) mmol/L Potassium 3.2 L (3.5-5.1) mmol/L Chloride 102 (98-107) mmol/L Carbon Dioxide 26.7 (21.0-32.0) mmol/L BUN 15 (7.0-18.0) mg/dL Creatinine 0.8 (0.6-1.0) mg/dL Est Cr Clr Drug Dosing 63.48 mL/min Estimated GFR (MDRD) > 60.0 ml/min Glucose 111 H (74-106) mg/dL Calcium 9.0 (8.5-10.1) mg/dL Total Bilirubin 0.2 (0.2-1.0) mg/dL AST 13 L (15-37) IU/L ALT 24 (14-63) IU/L Alkaline Phosphatase 66 (46-116) U/L Troponin I < 0.050 (0.000-0.056) ng/mL Total Protein 8.2 (6.4-8.2) g/dL Albumin 4.1 (3.4-5.0) g/dL Globulin 4.1 H (2.6-4.0) g/dL Albumin/Globulin Ratio 1.0 (0.9-1.6) Lipase 124 (73-393) U/L // Range/Units 00:40 WBC (4.0-11.0) K/uL RBC (4.30-5.90) M/uL Hgb (12.0-16.0) g/dL Hct (36.0-46.0) % MCV (80.0-98.0) fL MCH (27.0-32.0) pg MCHC (31.0-37.0) g/dL RDW Std Deviation (28.0-62.0) fl RDW Coeff of Santi (11.0-15.0) % Plt Count (150-400) K/uL MPV (7.40-12.00) fL Neut % (Auto) (48.0-80.0) % Lymph % (Auto) (16.0-40.0) % [place] % (Auto) (0.0-15.0) % Eos % (Auto) (0.0-7.0) % Baso % (Auto) (0.0-1.5) % Neut # (Auto) (1.4-5.7) K/uL Lymph # (Auto) (0.6-2.4) K/uL [place] # (Auto) (0.0-0.8) K/uL Eos # (Auto) (0.0-0.7) K/uL Baso # (Auto) (0.0-0.1) K/uL D-Dimer, Quantitative 0.43 (0.0-0.50) mg/L FEU Sodium (136-145) mmol/L Potassium (3.5-5.1) mmol/L Chloride (98-107) mmol/L Carbon Dioxide (21.0-32.0) mmol/L BUN (7.0-18.0) mg/dL Creatinine (0.6-1.0) mg/dL Est Cr Clr Drug Dosing mL/min Estimated GFR (MDRD) ml/min Glucose (74-106) mg/dL Calcium (8.5-10.1) mg/dL Total Bilirubin (0.2-1.0) mg/dL AST (15-37) IU/L ALT (14-63) IU/L Alkaline Phosphatase (46-116) U/L Troponin I (0.000-0.056) ng/mL Total Protein (6.4-8.2) g/dL Albumin (3.4-5.0) g/dL Globulin (2.6-4.0) g/dL Albumin/Globulin Ratio (0.9-1.6) Lipase (73-393) U/L Meds: Medications Generic Name Dose Route Start Last Admin Trade Name Freq PRN Reason Stop Dose Admin Nitroglycerin 0.4 mg 06/25/21 01:38 06/25/21 02:10 Nitroglycerin 0.4 Mg Tab.Sl SL 0.4 mg Q5M PRN Administration Chest Pain Sodium Chloride 10 ml 06/25/21 00:41 06/25/21 00:50 Sodium Chloride 0.9% 10 Ml Syringe FLUSH 10 ml ASDIRECTED PRN Administration Keep Vein Open Sodium Chloride 2.5 ml 06/25/21 00:41 06/25/21 00:50 Sodium Chloride 0.9% 2.5 Ml Syringe FLUSH 2.5 ml ASDIRECTED PRN Administration Keep Vein Open Discontinued Medications Generic Name Dose Route Start Last Admin Trade Name Freq PRN Reason Stop Dose Admin Aspirin 325 mg 06/25/21 01:38 06/25/21 02:02 Aspirin 325 Mg Tab.Ec PO 06/25/21 01:39 325 mg ONETIME ONE Administration Pantoprazole Sodium 40 mg 06/25/21 01:38 06/25/21 01:53 Pantoprazole 40 Mg/10 Ml Syringe IVPUSH 06/25/21 01:39 40 mg NOW ONE Administration Potassium Chloride 40 meq 06/25/21 01:41 06/25/21 01:53 Potassium Chloride 10% 20 Meq/15 Ml Soln 30 Ml Ud Cup PO 06/25/21 01:42 40 meq ONETIME ONE Administration - Re-Assessments/Exams Free Text/Narrative Re-Assessment/Exam: 06/25/21 03:01 After 1 sublingual nitroglycerin, her chest pain is significantly improved. Case discussed with Dr. Heard, who agrees to admit patient. The hospitalist's documentation supersedes all other documentation on this patient with regard to any conflicts or discrepancies from this point forward. Any emergency conditions have been treated to the ability of the ED prior to admission. Departure - Departure Time of Disposition: 03:01 Disposition: Refer to Observation Condition: Good Clinical Impression: Atypical chest pain - Discharge Information *PRESCRIPTION DRUG MONITORING PROGRAM REVIEWED*: Not Applicable *COPY OF PRESCRIPTION DRUG MONITORING REPORT IN PATIENT BLAIR: Not Applicable Instructions: Nonspecific Chest Pain, Adult Referrals: PCP,None [Primary Care Provider] - Forms: ED Department Discharge Sepsis Event Note (ED) - Focused Exam Vital Signs: Vital Signs Temp Pulse Resp BP BP Pulse Ox 06/25/21 02:15 92 17 102/65 97 06/25/21 02:10 122/65 06/25/21 02:03 93 18 122/65 95 06/25/21 01:11 80 17 160/90 H 99 06/25/21 00:43 97.4 F 93 20 160/90 H 100 - My Orders Last 24 Hours: My Active Orders 06/25/21 00:40 B-TYPE NATRIURETIC PEPTIDE,BNP [CHEM] Stat 06/25/21 00:41 Cardiac Monitoring [RC] . DIRECTED Sodium Chloride 0.9% [Saline Flush] 10 ml FLUSH ASDIRECTED PRN Sodium Chloride 0.9% [Saline Flush] 2.5 ml FLUSH ASDIRECTED PRN 06/25/21 00:42 Saline Lock Insert [OM.PC] Stat 06/25/21 01:38 Nitroglycerin [Nitrostat] 0.4 mg SL Q5M PRN 06/25/21 03:00 CORONAVIRUS COVID-19 KATARZYNA [MOLEC] Stat - Assessment/Plan Last 24 Hours: My Active Orders 06/25/21 00:40 B-TYPE NATRIURETIC PEPTIDE,BNP [CHEM] Stat 06/25/21 00:41 Cardiac Monitoring [RC] . DIRECTED Sodium Chloride 0.9% [Saline Flush] 10 ml FLUSH ASDIRECTED PRN Sodium Chloride 0.9% [Saline Flush] 2.5 ml FLUSH ASDIRECTED PRN 06/25/21 00:42 Saline Lock Insert [OM.PC] Stat 06/25/21 01:38 Nitroglycerin [Nitrostat] 0.4 mg SL Q5M PRN 06/25/21 03:00 CORONAVIRUS COVID-19 KATARZYNA [MOLEC] Stat
[2021-06-25 01:10] LABS: BLOOD UREA NITROGEN,BUN 15 mg/dL (7.0-18.0); CARBON DIOXIDE,CO2 26.7 mmol/L (21.0-32.0); CHLORIDE,CL 102 mmol/L (98-107); GLUCOSE RANDOM 111 mg/dL (74-106); POTASSIUM,K 3.2 mmol/L (3.5-5.1); SODIUM,NA 140 mmol/L (136-145)
--- NOTE | 2021-06-25 01:10 | CR ---
INDICATION: Chest pain TECHNIQUE: Chest radiograph 1 view COMPARISON: None FINDINGS: Mediastinum: The mediastinum is normal in appearance. The heart silhouette is normal in size and morphology. Lung: Both lungs are unremarkable in appearance. No sign of pleural effusion seen. No pneumothorax is identified. Bone and Soft tissue: Ossification along the anterior right 6th rib near the costochondral junction is noted. IMPRESSION: 1. No acute cardiopulmonary disease is seen. Dictated by: Herb Bose MD @ 06/25/2021 01:07:56 (Electronically Signed)
[2021-06-25] MEDS ORDERED: Nitroglycerin 0.4 MG Tab.SL SL PRN (01:38)
[2021-06-25] MEDS ORDERED: Aspirin 325 MG Tab.EC PO ONE (01:38)
[2021-06-25] MEDS ORDERED: Pantoprazole 40 MG/10 ML Syringe IVPUSH ONE (01:38)
[2021-06-25] MEDS ORDERED: Potassium Chloride 10% 20 MEQ/15 ML Soln 30 ML UD Cup PO ONE (01:41)
--- NOTE | 2021-06-25 07:26 | PCM.HP.2 ---
H&P History of Present Illness - General Date of Service: 06/25/21 Admit Problem/Dx: Admission Diagnosis/Problem Admission Diagnosis/Problem Chest pain - History of Present Illness Initial Comments - Free Text/Narative: 51-year-old female with a history of lupus presented to the ER with complaints of left-sided chest pain that radiated to her left arm. For the past 2 days patient has had intermittent waxing and waning cramping sensation in her chest 01/20. She also endorsed shortness of breath and nausea. Patient has not had this pain before. Patient denies palpitations, diaphoresis, vomiting, cough, fever, chills, headaches, lightheadedness. No cardiovascular history. Chest pain resolved after receiving nitroglycerin in the ER. Patient was recently diagnosed with lupus in April, she was not started on any medications. She is awaiting rheumatology referral. She follows primary care at the [facility]. ER course: WBC 10.84. Hemoglobin 15. Hematocrit 43.8. Platelet count 340. D- dimer 0.43. Sodium 140. Potassium 3.2. Chloride 102. Bicarb 26.7. BUN 15. Creatinine 0.8. Glucose 111. AST 13. ALT 24. Alk phos 66. Troponins negative x2. Lipase 124. SARS-CoV-2 negative. EKG showed normal sinus rhythm, no signs of ischemia. Chest Pain Score (Numeric/FACES): 1 - Related Data Allergies/Adverse Reactions: Allergies Allergy/AdvReac Type Severity Reaction Status Date / Time doxycycline Allergy Seizure Verified 06/25/21 00:45 erythromycin lactobionate Allergy Nausea and Verified 06/25/21 00:45 [From Erythrocin] Vomiting Home Medications: Home Meds Omeprazole 20 mg PO DAILY 14 Days #14 tablet. 06/25/21 [Rx] hydrALAZINE [Apresoline] 50 mg TID PRN 06/25/21 [History] Past Medical History HEENT History: Reports: None Cardiovascular History: Reports: Hypertension Respiratory History: Reports: Sleep Apnea, Other (See Below) Other Respiratory History: C-pap at home for sleep Gastrointestinal History: Reports: GERD Genitourinary History: 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 Calculus [employer] History: Reports: Musculoskeletal History: Reports: Back Pain, Chronic Neurological History: Reports: Seizure, Other (See Below) Other Neuro History: seizure from doxycycline Psychiatric History: Reports: Anxiety Endocrine/Metabolic History: Reports: None Hematologic History: Reports: None Immunologic History: Reports: None Oncologic (Cancer) History: Reports: None Dermatologic History: Reports: Other (See Below) Other Dermatologic History: rosacea - Infectious Disease History Infectious Disease History: Reports: Chicken Pox - Past Surgical History Head Surgeries/Procedures: Reports: None HEENT Surgical History: Reports: Tonsillectomy Cardiovascular Surgical History: Reports: None Respiratory Surgical History: Reports: None GI Surgical History: Reports: Appendectomy, Cholecystectomy Female Surgical History: Reports: Hysterectomy Endocrine Surgical History: Reports: None Neurological Surgical History: Reports: Laminectomy, Spinal Fusion Musculoskeletal Surgical History: Reports: Other (See Below) Other Musculoskeletal Surgeries/Procedures:: back pain and back surgery x3 Last January 2017 back fusion Dermatological Surgical History: Reports: None Social & Family History - Family History Family Medical History: No Pertinent Family History Cardiac: Reports: [place] - Tobacco Use Tobacco Use Status *Q: Former Tobacco User Years of Tobacco use: 0 Used Tobacco, but Quit: Yes Month/Year Tobacco Last Used: 2016 Second Hand Smoke Exposure: No - Caffeine Use Caffeine Use: Reports: None Caffeine Use Comment: 2 cups coffee per day - Recreational Drug Use Recreational Drug Use: No H&P Review of Systems - Review of Systems: Review Of Systems: See Below General: Denies: Fever, Night Sweats, Diaphoresis HEENT: Denies: Headaches Pulmonary: Denies: Shortness of Breath, Wheezing, Pleuritic Chest Pain, Cough Cardiovascular: Reports: Chest Pain. Denies: Palpitations, Dyspnea on Exertion, Edema Gastrointestinal: Denies: Abdominal Pain, Anorexia, Nausea, Vomiting Genitourinary: Denies: Dysuria, Frequency Musculoskeletal: Denies: Leg Pain Skin: Denies: Rash Neurological: Denies: Confusion, Dizziness, Headache, Numbness, Paresthesia Exam - Exam Exam: See Below - Vital Signs Vital Signs: Last Vital Signs Temp 97.7 F 06/25/21 04:16 Pulse 69 06/25/21 04:16 Resp 18 06/25/21 04:16 BP 102/54 L 06/25/21 04:16 Pulse Ox 97 06/25/21 04:16 Weight: 181 lb 4.8 oz - Exam General: Alert, Oriented, Other (Butterfly rash) HEENT: Conjunctiva Clear, EACs Clear, EOMI Neck: Supple, Trachea Midline Lungs: Clear to Auscultation, Normal Respiratory Effort Cardiovascular: Regular Rate, Regular Rhythm GI/Abdominal Exam: Normal Bowel Sounds, Soft, Non-Tender Back Exam: Normal Inspection Extremities: Normal Inspection, Normal Range of Motion, Non-Tender, No Pedal Edema Peripheral Pulses: 2+: Dorsalis Pedis (L), Dorsalis Pedis (R) Skin: Warm, Dry, Intact - Patient Data Lab Results Last 24 hrs: Laboratory Results - last 24 hr 06/25/21 06/25/21 06/25/21 Range/Units 00:40 00:40 00:40 WBC 10.84 (4.0-11.0) K/uL RBC 4.90 (4.30-5.90) M/uL Hgb 15.0 (12.0-16.0) g/dL Hct 43.8 (36.0-46.0) % MCV 89.4 (80.0-98.0) fL MCH 30.6 (27.0-32.0) pg MCHC 34.2 (31.0-37.0) g/dL RDW Std Deviation 45.1 (28.0-62.0) fl RDW Coeff of Santi 14 (11.0-15.0) % Plt Count 340 (150-400) K/uL MPV 9.10 (7.40-12.00) fL Neut % (Auto) 45.1 L (48.0-80.0) % Lymph % (Auto) 44.1 H (16.0-40.0) % [place] % (Auto) 8.7 (0.0-15.0) % Eos % (Auto) 1.8 (0.0-7.0) % Baso % (Auto) 0.3 (0.0-1.5) % Neut # (Auto) 4.9 (1.4-5.7) K/uL Lymph # (Auto) 4.8 H (0.6-2.4) K/uL [place] # (Auto) 0.9 H (0.0-0.8) K/uL Eos # (Auto) 0.2 (0.0-0.7) K/uL Baso # (Auto) 0.0 (0.0-0.1) K/uL D-Dimer, Quantitative (0.0-0.50) mg/L FEU Sodium 140 (136-145) mmol/L Potassium 3.2 L (3.5-5.1) mmol/L Chloride 102 (98-107) mmol/L Carbon Dioxide 26.7 (21.0-32.0) mmol/L BUN 15 (7.0-18.0) mg/dL Creatinine 0.8 (0.6-1.0) mg/dL Est Cr Clr Drug Dosing 63.48 mL/min Estimated GFR (MDRD) > 60.0 ml/min Glucose 111 H (74-106) mg/dL Calcium 9.0 (8.5-10.1) mg/dL Total Bilirubin 0.2 (0.2-1.0) mg/dL AST 13 L (15-37) IU/L ALT 24 (14-63) IU/L Alkaline Phosphatase 66 (46-116) U/L Troponin I < 0.050 (0.000-0.056) ng/mL Total Protein 8.2 (6.4-8.2) g/dL Albumin 4.1 (3.4-5.0) g/dL Globulin 4.1 H (2.6-4.0) g/dL Albumin/Globulin Ratio 1.0 (0.9-1.6) Lipase 124 (73-393) U/L SARS-CoV-2 RNA (KATARZYNA) (NEGATIVE) 06/25/21 06/25/21 Range/Units 00:40 03:20 WBC (4.0-11.0) K/uL RBC (4.30-5.90) M/uL Hgb (12.0-16.0) g/dL Hct (36.0-46.0) % MCV (80.0-98.0) fL MCH (27.0-32.0) pg MCHC (31.0-37.0) g/dL RDW Std Deviation (28.0-62.0) fl RDW Coeff of Santi (11.0-15.0) % Plt Count (150-400) K/uL MPV (7.40-12.00) fL Neut % (Auto) (48.0-80.0) % Lymph % (Auto) (16.0-40.0) % [place] % (Auto) (0.0-15.0) % Eos % (Auto) (0.0-7.0) % Baso % (Auto) (0.0-1.5) % Neut # (Auto) (1.4-5.7) K/uL Lymph # (Auto) (0.6-2.4) K/uL [place] # (Auto) (0.0-0.8) K/uL Eos # (Auto) (0.0-0.7) K/uL Baso # (Auto) (0.0-0.1) K/uL D-Dimer, Quantitative 0.43 (0.0-0.50) mg/L FEU Sodium (136-145) mmol/L Potassium (3.5-5.1) mmol/L Chloride (98-107) mmol/L Carbon Dioxide (21.0-32.0) mmol/L BUN (7.0-18.0) mg/dL Creatinine (0.6-1.0) mg/dL Est Cr Clr Drug Dosing mL/min Estimated GFR (MDRD) ml/min Glucose (74-106) mg/dL Calcium (8.5-10.1) mg/dL Total Bilirubin (0.2-1.0) mg/dL AST (15-37) IU/L ALT (14-63) IU/L Alkaline Phosphatase (46-116) U/L Troponin I (0.000-0.056) ng/mL Total Protein (6.4-8.2) g/dL Albumin (3.4-5.0) g/dL Globulin (2.6-4.0) g/dL Albumin/Globulin Ratio (0.9-1.6) Lipase (73-393) U/L SARS-CoV-2 RNA (KATARZYNA) NEGATIVE (NEGATIVE) Result Diagrams: 06/25/21 00:40 06/25/21 06:40 Sepsis Event Note - Evaluation Sepsis Screening Result: No Definite Risk - Focused Exam Vital Signs: Vital Signs Temp Pulse Resp BP BP Pulse Ox 06/25/21 04:16 97.7 F 69 18 102/54 L 97 06/25/21 03:45 78 17 106/72 97 06/25/21 02:15 92 17 102/65 97 06/25/21 02:10 122/65 06/25/21 02:03 93 18 122/65 95 06/25/21 01:11 80 17 160/90 H 99 06/25/21 00:43 97.4 F 93 20 160/90 H 100 - Problem List (1) Hypokalemia SNOMED Code(s): 33963399 ICD Code: E87.6 - HYPOKALEMIA Status: Acute Current Visit: Yes (2) Atypical chest pain SNOMED Code(s): 493508166 ICD Code: R07.89 - OTHER CHEST PAIN Status: Acute Current Visit: Yes Problem List Initiated/Reviewed/Updated: Yes Orders Last 24hrs: Active Orders 24 hr Category Date Time Status Patient Status [ADT] Routine ADT 06/25/21 03:03 Active Cardiac Monitoring [RC] . DIRECTED Care 06/25/21 00:41 Active Telemetry Monitoring [Cardiac Monitoring] [RC] Care 06/25/21 03:55 Active ASDIRECTED Regular Diet [DIET] Diet 06/25/21 Breakfast Active B-TYPE NATRIURETIC PEPTIDE,BNP [CHEM] Stat Lab 06/25/21 00:40 Received TROPONIN I [CHEM] Q6H Lab 06/25/21 06:40 Received TROPONIN I [CHEM] Q6H Lab 06/25/21 12:40 Ordered Nitroglycerin [Nitrostat] Med 06/25/21 01:38 Active 0.4 mg SL Q5M PRN Sodium Chloride 0.9% [Saline Flush] Med 06/25/21 00:41 Active 10 ml FLUSH ASDIRECTED PRN Sodium Chloride 0.9% [Saline Flush] Med 06/25/21 00:41 Active 2.5 ml FLUSH ASDIRECTED PRN Saline Lock Insert [OM.PC] Stat Oth 06/25/21 00:42 Ordered Medication Orders Nitroglycerin (Nitroglycerin 0.4 Mg Tab.Sl) 0.4 mg SL Q5M PRN PRN Reason: Chest Pain Last Admin: 06/25/21 02:10 Dose: 0.4 mg Documented by: SEAGMIC Sodium Chloride (Sodium Chloride 0.9% 10 Ml Syringe) 10 ml FLUSH ASDIRECTED PRN PRN Reason: Keep Vein Open Last Admin: 06/25/21 00:50 Dose: 10 ml Documented by: CUYOCHR Sodium Chloride (Sodium Chloride 0.9% 2.5 Ml Syringe) 2.5 ml FLUSH ASDIRECTED PRN PRN Reason: Keep Vein Open Last Admin: 06/25/21 00:50 Dose: 2.5 ml Documented by: EVAYOCHJulia Assessment/Plan Comment:: Atypical chest pain: EKG was negative, troponins negative x2. Will monitor troponins. Patient is on telemetry. Replete potassium.
[2021-06-25 09:19] LABS: BLOOD UREA NITROGEN,BUN 18 mg/dL (7.0-18.0); CARBON DIOXIDE,CO2 25.2 mmol/L (21.0-32.0); CHLORIDE,CL 106 mmol/L (98-107); GLUCOSE RANDOM 97 mg/dL (74-106); POTASSIUM,K 4.4 mmol/L (3.5-5.1); SODIUM,NA 139 mmol/L (136-145)
[2021-06-25 10:09] VITALS: BP 107/60; PULSE 58
--- NOTE | 2021-06-25 11:13 | PCM.DCSUM1 ---
Discharge Summary - Hospital Course Free Text/Narrative:: 51-year-old female with new diagnosis of lupus made in April 2021 presented to the ER with complaints of chest pain radiating to the left shoulder. Chest pain resolved with nitroglycerin. Patient was monitored overnight. EKG showed normal sinus rhythm. Troponins were negative x3. Patient did complain of a long history of reflux. Home medications include hydralazine only for anxiety. Patient potassium was 3.2 and repleted. Patient stable. Patient will be discharged on 2-week trial of PPI. She follows primary care at the [facility] and was advised to have a stress test done. - Discharge Data Discharge Date: 06/25/21 Discharge Disposition: Home, Self-Care 01 Condition: Stable - Referral to Home Health Primary Care Physician: PCP None - Discharge Diagnosis/Problem(s) (1) Hypokalemia SNOMED Code(s): 57355467 ICD Code: E87.6 - HYPOKALEMIA Status: Acute Current Visit: Yes (2) Atypical chest pain SNOMED Code(s): 103193788 ICD Code: R07.89 - OTHER CHEST PAIN Status: Acute Current Visit: Yes - Patient Instructions Diet: Regular Diet as Tolerated Other/Special Instructions: You were admitted for chest pain. Your lab work or EKG did not show signs of a heart attack. As discussed, please follow-up with rheumatology regarding your new diagnosis for lupus. You are being given a prescription for 14 days of omeprazole to be taken 30 minutes before breakfast. Please see your primary care regarding refill. We also advised that you have a stress test done. Please speak with your physician at the [facility] to help get this arranged. If you experience new onset chest pain, palpitations, lighthea dedness, dizziness, weakness, numbness, tingling, please seek medical attention immediately. - Discharge Plan *PRESCRIPTION DRUG MONITORING PROGRAM REVIEWED*: Not Applicable *COPY OF PRESCRIPTION DRUG MONITORING REPORT IN PATIENT BLAIR: Not Applicable Prescriptions/Med Rec: Omeprazole 20 mg PO DAILY 14 Days #14 tablet. Home Medications: Home Meds Omeprazole 20 mg PO DAILY 14 Days #14 tablet. 06/25/21 [Rx] hydrALAZINE [Apresoline] 50 mg TID PRN 06/25/21 [History] Patient Handouts: Nonspecific Chest Pain, Adult Referrals: PCP,None [Primary Care Provider] - - Discharge Summary/Plan Comment DC Time >30 min.: Yes Total # of Minutes for Discharge Time: 45 - General Info Admission Dx/Problem (Free Text: Admission Diagnosis/Problem Admission Diagnosis/Problem Chest pain - Review of Systems General: Denies: Fever, Chills HEENT: Denies: Sore Throat Pulmonary: Denies: Shortness of Breath, Cough Cardiovascular: Denies: Chest Pain, Palpitations, Edema Gastrointestinal: Denies: Abdominal Pain, Constipation, Nausea, Vomiting Genitourinary: Denies: Dysuria Musculoskeletal: Denies: Leg Pain Skin: Denies: Cyanosis Neurological: Denies: Confusion, Dizziness, Headache, Numbness, Paresthesia - Patient Data Vitals - Most Recent: Last Vital Signs Temp 97.3 F 06/25/21 08:00 Pulse 58 L 06/25/21 08:00 Resp 16 06/25/21 08:00 BP 107/60 06/25/21 08:00 Pulse Ox 97 06/25/21 08:00 Weight - Most Recent: 181 lb 4.8 oz Lab Results - Last 24 hrs: Laboratory Results - last 24 hr 06/25/21 06/25/21 06/25/21 Range/Units 00:40 00:40 00:40 WBC 10.84 (4.0-11.0) K/uL RBC 4.90 (4.30-5.90) M/uL Hgb 15.0 (12.0-16.0) g/dL Hct 43.8 (36.0-46.0) % MCV 89.4 (80.0-98.0) fL MCH 30.6 (27.0-32.0) pg MCHC 34.2 (31.0-37.0) g/dL RDW Std Deviation 45.1 (28.0-62.0) fl RDW Coeff of Santi 14 (11.0-15.0) % Plt Count 340 (150-400) K/uL MPV 9.10 (7.40-12.00) fL Neut % (Auto) 45.1 L (48.0-80.0) % Lymph % (Auto) 44.1 H (16.0-40.0) % [place] % (Auto) 8.7 (0.0-15.0) % Eos % (Auto) 1.8 (0.0-7.0) % Baso % (Auto) 0.3 (0.0-1.5) % Neut # (Auto) 4.9 (1.4-5.7) K/uL Lymph # (Auto) 4.8 H (0.6-2.4) K/uL [place] # (Auto) 0.9 H (0.0-0.8) K/uL Eos # (Auto) 0.2 (0.0-0.7) K/uL Baso # (Auto) 0.0 (0.0-0.1) K/uL D-Dimer, Quantitative (0.0-0.50) mg/L FEU Sodium 140 (136-145) mmol/L Potassium 3.2 L (3.5-5.1) mmol/L Chloride 102 (98-107) mmol/L Carbon Dioxide 26.7 (21.0-32.0) mmol/L BUN 15 (7.0-18.0) mg/dL Creatinine 0.8 (0.6-1.0) mg/dL Est Cr Clr Drug Dosing 63.48 mL/min Estimated GFR (MDRD) > 60.0 ml/min Glucose 111 H (74-106) mg/dL Calcium 9.0 (8.5-10.1) mg/dL Total Bilirubin 0.2 (0.2-1.0) mg/dL AST 13 L (15-37) IU/L ALT 24 (14-63) IU/L Alkaline Phosphatase 66 (46-116) U/L Troponin I < 0.050 (0.000-0.056) ng/mL Total Protein 8.2 (6.4-8.2) g/dL Albumin 4.1 (3.4-5.0) g/dL Globulin 4.1 H (2.6-4.0) g/dL Albumin/Globulin Ratio 1.0 (0.9-1.6) Lipase 124 (73-393) U/L SARS-CoV-2 RNA (KATARZYNA) (NEGATIVE) 06/25/21 06/25/21 06/25/21 Range/Units 00:40 03:20 06:40 WBC (4.0-11.0) K/uL RBC (4.30-5.90) M/uL Hgb (12.0-16.0) g/dL Hct (36.0-46.0) % MCV (80.0-98.0) fL MCH (27.0-32.0) pg MCHC (31.0-37.0) g/dL RDW Std Deviation (28.0-62.0) fl RDW Coeff of Santi (11.0-15.0) % Plt Count (150-400) K/uL MPV (7.40-12.00) fL Neut % (Auto) (48.0-80.0) % Lymph % (Auto) (16.0-40.0) % [place] % (Auto) (0.0-15.0) % Eos % (Auto) (0.0-7.0) % Baso % (Auto) (0.0-1.5) % Neut # (Auto) (1.4-5.7) K/uL Lymph # (Auto) (0.6-2.4) K/uL [place] # (Auto) (0.0-0.8) K/uL Eos # (Auto) (0.0-0.7) K/uL Baso # (Auto) (0.0-0.1) K/uL D-Dimer, Quantitative 0.43 (0.0-0.50) mg/L FEU Sodium (136-145) mmol/L Potassium (3.5-5.1) mmol/L Chloride (98-107) mmol/L Carbon Dioxide (21.0-32.0) mmol/L BUN (7.0-18.0) mg/dL Creatinine (0.6-1.0) mg/dL Est Cr Clr Drug Dosing mL/min Estimated GFR (MDRD) ml/min Glucose (74-106) mg/dL Calcium (8.5-10.1) mg/dL Total Bilirubin (0.2-1.0) mg/dL AST (15-37) IU/L ALT (14-63) IU/L Alkaline Phosphatase (46-116) U/L Troponin I < 0.050 (0.000-0.056) ng/mL Total Protein (6.4-8.2) g/dL Albumin (3.4-5.0) g/dL Globulin (2.6-4.0) g/dL Albumin/Globulin Ratio (0.9-1.6) Lipase (73-393) U/L SARS-CoV-2 RNA (KATARZYNA) NEGATIVE (NEGATIVE) 06/25/21 Range/Units 06:40 WBC (4.0-11.0) K/uL RBC (4.30-5.90) M/uL Hgb (12.0-16.0) g/dL Hct (36.0-46.0) % MCV (80.0-98.0) fL MCH (27.0-32.0) pg MCHC (31.0-37.0) g/dL RDW Std Deviation (28.0-62.0) fl RDW Coeff of Santi (11.0-15.0) % Plt Count (150-400) K/uL MPV (7.40-12.00) fL Neut % (Auto) (48.0-80.0) % Lymph % (Auto) (16.0-40.0) % [place] % (Auto) (0.0-15.0) % Eos % (Auto) (0.0-7.0) % Baso % (Auto) (0.0-1.5) % Neut # (Auto) (1.4-5.7) K/uL Lymph # (Auto) (0.6-2.4) K/uL [place] # (Auto) (0.0-0.8) K/uL Eos # (Auto) (0.0-0.7) K/uL Baso # (Auto) (0.0-0.1) K/uL D-Dimer, Quantitative (0.0-0.50) mg/L FEU Sodium 139 (136-145) mmol/L Potassium 4.4 (3.5-5.1) mmol/L Chloride 106 (98-107) mmol/L Carbon Dioxide 25.2 (21.0-32.0) mmol/L BUN 18 (7.0-18.0) mg/dL Creatinine 0.7 (0.6-1.0) mg/dL Est Cr Clr Drug Dosing 72.55 mL/min Estimated GFR (MDRD) > 60.0 ml/min Glucose 97 (74-106) mg/dL Calcium 8.5 (8.5-10.1) mg/dL Total Bilirubin (0.2-1.0) mg/dL AST (15-37) IU/L ALT (14-63) IU/L Alkaline Phosphatase (46-116) U/L Troponin I (0.000-0.056) ng/mL Total Protein (6.4-8.2) g/dL Albumin (3.4-5.0) g/dL Globulin (2.6-4.0) g/dL Albumin/Globulin Ratio (0.9-1.6) Lipase (73-393) U/L SARS-CoV-2 RNA (KATARZYNA) (NEGATIVE) Med Orders - Current: Current Medications Nitroglycerin (Nitroglycerin 0.4 Mg Tab.Sl) 0.4 mg SL Q5M PRN PRN Reason: Chest Pain Last Admin: 06/25/21 02:10 Dose: 0.4 mg Documented by: Sodium Chloride (Sodium Chloride 0.9% 10 Ml Syringe) 10 ml FLUSH ASDIRECTED PRN PRN Reason: Keep Vein Open Last Admin: 06/25/21 00:50 Dose: 10 ml Documented by: Sodium Chloride (Sodium Chloride 0.9% 2.5 Ml Syringe) 2.5 ml FLUSH ASDIRECTED PRN PRN Reason: Keep Vein Open Last Admin: 06/25/21 00:50 Dose: 2.5 ml Documented by: Discontinued Medications Aspirin (Aspirin 325 Mg Tab.Ec) 325 mg PO ONETIME ONE Stop: 06/25/21 01:39 Last Admin: 06/25/21 02:02 Dose: 325 mg Documented by: Pantoprazole Sodium (Pantoprazole 40 Mg/10 Ml Syringe) 40 mg IVPUSH NOW ONE Stop: 06/25/21 01:39 Last Admin: 06/25/21 01:53 Dose: 40 mg Documented by: Potassium Chloride (Potassium Chloride 10% 20 Meq/15 Ml Soln 30 Ml Ud Cup) 40 meq PO ONETIME ONE Stop: 06/25/21 01:42 Last Admin: 06/25/21 01:53 Dose: 40 meq Documented by: - Exam General: Reports: Alert, Oriented, Cooperative HEENT: Reports: Pupils Equal, Pupils Reactive, Mucous Membr. Moist/[place], Other (Erythema of the bilateral cheeks in a butterfly pattern.) Neck: Reports: Supple, Trachea Midline Lungs: Reports: Clear to Auscultation, Normal Respiratory Effort Cardiovascular: Reports: Regular Rate, Regular Rhythm GI/Abdominal Exam: Normal Bowel Sounds, Soft, Non-Tender Back Exam: Reports: Normal Inspection Extremities: Normal Inspection, No Pedal Edema Skin: Reports: Warm, Dry Neurological: Reports: No New Focal Deficit
== END 2021-06-25 14:30 | disposition home or self-care (01) ==
LOC: MW.ED 00:37 → MW.MS 03:03
PROVIDERS: ADMIT Internal Medicine; ATTEND Internal Medicine
DX: R07.89 Other chest pain (principal); I10 Essential (primary) hypertension; G47.30 Sleep apnea, unspecified; K21.9 Gastro-esophageal reflux disease without esophagitis; F41.9 Anxiety disorder, unspecified; E87.6 Hypokalemia; Z20.822 Contact with and (suspected) exposure to COVID-19; Z90.49 Acquired absence of other specified parts of digestive tract; Z98.890 Other specified postprocedural states; Z88.8 Allergy status to other drugs, medicaments and biological substances; Z79.899 Other long term (current) drug therapy; Z87.891 Personal history of nicotine dependence
CPT/HCPCS: 36415; 71045; 80048; 80053; 83690; 83880; 84484; 85025; 85379; 87635; 93005; 96374; 99285; A9270; C9113; G0378; U0002

== ENCOUNTER 2021-08-31 06:27 | Day surgery (SDC) | payer OTHER ==
[~2021-08-31 06:27] MED LIST: Lactated Ringers 1,000 ML IV SCH
[2021-08-31] MEDS ORDERED: Propofol 200 MG/20 ML SDV ONE ×2 (06:52→08:04)
[2021-08-31] MEDS ORDERED: Midazolam 1 MG/ML 2 ML SDV ONE (06:53)
[2021-08-31] MEDS ORDERED: fentaNYL 100 MCG/2 ML SDV ONE (06:53)
[2021-08-31 08:38] VITALS: BP 107/61; PULSE 65
== END 2021-08-31 09:00 | disposition home or self-care (01) ==
LOC: MW.SDS 06:27
PROVIDERS: ATTEND Surgery
DX: Z12.11 Encounter for screening for malignant neoplasm of colon (principal); F41.9 Anxiety disorder, unspecified; G43.009 Migraine without aura, not intractable, without status migrainosus; E66.9 Obesity, unspecified; G47.30 Sleep apnea, unspecified; Z88.1 Allergy status to other antibiotic agents; Z79.899 Other long term (current) drug therapy; Z90.49 Acquired absence of other specified parts of digestive tract; Z98.890 Other specified postprocedural states; Z87.891 Personal history of nicotine dependence; Z68.41 Body mass index [BMI] 40.0-44.9, adult
CPT/HCPCS: 45378; J2250; J2704; J3010; J7120; 00812

== ENCOUNTER 2021-12-22 18:01 | Emergency (ER) | payer OTHER ==
[2021-12-22] MEDS ORDERED: Sodium Chloride 0.9% 1,000 ML IV ONE (19:42)
[2021-12-22] MEDS ORDERED: Sodium Chloride 0.9% 10 ML Syringe FLUSH PRN (19:42)
[2021-12-22] MEDS ORDERED: Ondansetron 4 MG/2 ML SDV IVPUSH ONE (19:42)
[2021-12-22] MEDS ORDERED: Sodium Chloride 0.9% 2.5 ML Syringe FLUSH PRN (19:42)
[2021-12-22] MEDS ORDERED: Ketorolac 30 MG/ML SDV IVPUSH ONE (19:50)
[2021-12-22 20:40] LABS: BLOOD UREA NITROGEN,BUN 11 mg/dL (7.0-18.0); CARBON DIOXIDE,CO2 26.3 mmol/L (21.0-32.0); CHLORIDE,CL 107 mmol/L (98-107); GLUCOSE RANDOM 110 mg/dL (74-106); LIPASE 60 U/L (73-393); POTASSIUM,K 3.9 mmol/L (3.5-5.1); SODIUM,NA 141 mmol/L (136-145)
[2021-12-22 20:49] LABS: ESTIMATED GFR > 60.0 ml/min
[2021-12-22 21:18] LABS: CORONAVIRUS COVID-19 NAA NEGATIVE (NEGATIVE); INFLUENZA A NAA NEGATIVE (NEGATIVE); INFLUENZA B NAA NEGATIVE (NEGATIVE)
[2021-12-23 03:41] VITALS: BP 127/68; PULSE 78
== END 2021-12-22 21:56 | disposition home or self-care (01) ==
LOC: MW.ED 18:01
DX: B34.9 Viral infection, unspecified (principal); K21.9 Gastro-esophageal reflux disease without esophagitis; E66.9 Obesity, unspecified; Z68.30 Body mass index [BMI] 30.0-30.9, adult; Z79.899 Other long term (current) drug therapy; Z20.822 Contact with and (suspected) exposure to COVID-19; Z88.1 Allergy status to other antibiotic agents
CPT/HCPCS: 0240U; 36415; 80053; 81003; 83690; 85025; 96361; 96374; 96375; 99284; J1885; J2405; J3490; J7030; 99283